=== PATIENT | female | born 1980 | race Caucasian/White ===

== ENCOUNTER → 2017-02-04 13:27 | Emergency (ER) | payer OTHER ==
[~2017-02-04 13:27] MED LIST: NS 0.9% 1000 ML* 1,000 ML IV ONE
[2017-02-04 14:21] LABS: Hematocrit 41 % (35-47); Hemoglobin 13.5 g/dl (12.0-16.0); Mean Corpuscular HGB Conc 33 g/dl (31-36); Mean Corpuscular Hemoglobin 29 pg (27-31); Mean Corpuscular Volume 88 fL (80-97); Mean Platelet Volume 9 um3 (7.4-10.4); Red Blood Count 4.66 10^6/ul (4.0-5.4); Red Cell Distribution Width 13 % (10.5-15); White Blood Count 11.2 10^3/ul (3.5-10.8)
[2017-02-04 14:36] LABS: Albumin 4.6 g/dL (3.2-5.2); BUN/Creatinine Ratio 18.5 (8-20); C Reactive Protein 2.06 mg/L (< 5.00); Calcium 9.3 mg/dL (8.6-10.3); EGFR African American 132.6 (>60); EGFR Non-African American 103.1 (>60); Globulin 2.8 g/dL (2-4); Potassium 3.7 mmol/L (3.5-5.0); Total Bilirubin 0.5 mg/dL (0.2-1.0); Total Protein 7.4 g/dL (6.4-8.9)
--- NOTE | 2017-02-04 15:49 | RAD ---
Indication: Right upper quadrant pain. Real-time sonography of the right upper quadrant was performed. The liver is at the upper limits of normal size measuring 18.0 cm in length. No focal lesions or intrahepatic duct dilatation is noted. The gallbladder demonstrates several echogenic foci with posterior acoustic shadowing. Findings are consistent with cholelithiasis. No pericholecystic fluid or wall thickening is identified. No evidence of sonographic Gongora's sign is noted. Common duct measures 4 mm. Right kidney measures 10.7 x 5.6 x 4.1 cm with no hydronephrosis. The pancreas head, neck and proximal body where visualized is unremarkable. IMPRESSION: CHOLELITHIASIS WITHOUT EVIDENCE OF BILIARY DUCT DILATATION.
--- NOTE | 2017-02-04 18:30 | ED ---
I, Oh,Sojohnny, scribed for Angel Wilson MD on 02/04/17 at 1419 . Abdominal Pain/Female - HPI Summary HPI Summary: This 36 y/o female presents to ED from Urgent Care for acute 03/12 RUQ abd pain since 0400 AM. Pain radiates to back. Pt reports consuming potato, cheese & broccoli, and strawberry shortcake last night. Positive and 1x n/v at 0830 AM. Pt was able to tolerate two slices of toasts afterward. Pain is alleviated by IBP 600 mg taken at 1030 AM. She had 3x BM this morning, and pt states this is more frequent than her baseline. Negative melena or discoloration of urination. Ambulation makes it worse. Position did not change pain. PMHx does not include prior gallbladder dz. FHx is negative for any gallbladder dz, but positive for HTN to father. - History of Current Complaint Chief Complaint: EDAbdPain Stated Complaint: RT ABD PAIN Time Seen by Provider: 02/04/17 13:57 Hx Obtained From: Patient Hx Last Menstrual Period: 08/29/14 Onset/Duration: Sudden Onset, Still Present Pain Intensity: 8 Pain Scale Used: 0-10 Numeric Location: Discrete At: RUQ Radiates: Yes Character: Dull Aggravating Factor(s): Movement - ambulation Alleviating Factor(s): Nothing Associated Signs and Symptoms: Positive: Nausea, Vomiting, Other: - increased frequency of BM. Negative: Fever, Blood in Stool Allergies/Adverse Reactions: Allergies Allergy/AdvReac Type Severity Reaction Status Date / Time Penicillins Allergy Hives Verified 02/04/17 11:30 Seasonal Allergies Allergy Congestion Uncoded 02/04/17 11:30 PMH/Surg Hx/FS Hx/Imm Hx Endocrine/Hematology History: Denies: Hx Diabetes, Hx Thyroid Disease Cardiovascular History: Denies: Hx Hypertension Respiratory History: Denies: Hx Asthma, Hx Chronic Obstructive Pulmonary Disease (COPD) GI History: Denies: Hx Ulcer - Surgical History Surgery Procedure, Year, and Place: Appendectomy, Ear Tubes, Anal Fissure ssurgery Infectious Disease History: No Infectious Disease History: Denies: Hx Clostridium Difficile, Hx Hepatitis, Hx Human Immunodeficiency Virus (HIV), Hx of Known/Suspected MRSA, Hx Shingles, Hx Tuberculosis, Hx Known/ Suspected VRE, Hx Known/Suspected VRSA, History Other Infectious Disease, Traveled Outside the [place] in Last 30 Days - Family History Known Family History: Positive: Hypertension - Social History Alcohol Use: None Substance Use Type: Reports: None Smoking Status (MU): Never Smoked Tobacco Review of Systems Negative: Fever, Skin Diaphoresis Positive: Abdominal Pain - RUQ, Vomiting, Nausea, Other - Increased BM All Other Systems Reviewed And Are Negative: Yes Physical Exam - Summary Physical Exam Summary: The patient is well-nourished in no acute distress and in no acute pain. The skin is warm and dry and skin color reflects adequate perfusion. Nondiaphoretic. HEENT: The head is normocephalic and atraumatic. The pupils are equal and reactive. The conjunctivae are clear and without drainage. Nares are patent and without drainage. Mouth reveals moist mucous membranes and the throat is without erythema and exudate. The external ears are intact. The ear canals are patent and without drainage. The tympanic membranes are intact. Neck is supple with full range of motion and non-tender. There are no carotid bruits. There is no neck vein distension. Respiratory: Chest is non-tender. Lungs are clear to auscultation and breath sounds are symmetrical and equal. Cardiovascular: Hear is regular rate and rhythm. There is no murmur or rub auscultated. There is no peripheral edema. Abdomen: RUQ pain, otherwise, the abdomen is soft and non-tender. There are normal bowel sounds heard in all four quadrants and there is no organomegaly palpated. Negative CVA. Musculoskeletal: There is no back pain noted. Extremities are non-tender with full range of motion. There is good capillary refill. There is no peripheral edema or calf tenderness elicited. Neurological: Patient is alert and oriented to person, place and time. The patient has symmetrical motor strength in all four extremities. Cranial nerves are grossly intact. Deep tendon reflexes are symmetrical and equal in all four extremities. Psychiatric: The patient has an appropriate affect and does not exhibit any anxiety or depression. Triage Information Reviewed: Yes Vital Signs On Initial Exam: Initial Vitals Temp Pulse Resp BP Pulse Ox 98.7 F 95 20 117/63 100 02/04/17 13:44 02/04/17 13:44 02/04/17 13:44 02/04/17 13:44 02/04/17 13:44 Vital Signs Reviewed: Yes Diagnostics - Vital Signs Vital Signs Temp Pulse Resp BP Pulse Ox 02/04/17 13:46 97.7 F 100 16 117/63 100 02/04/17 13:44 98.7 F 95 20 117/63 100 - Laboratory Lab Results: Lab Results 02/04/17 02/04/17 02/04/17 Range/Units 14:10 14:10 14:10 WBC 11.2 H (3.5-10.8) 10^3/ul RBC 4.66 (4.0-5.4) 10^6/ul Hgb 13.5 (12.0-16.0) g/dl Hct 41 (35-47) % MCV 88 (80-97) fL MCH 29 (27-31) pg MCHC 33 (31-36) g/dl RDW 13 (10.5-15) % Plt Count 201 (150-450) 10^3/ul MPV 9 (7.4-10.4) um3 Neut % (Auto) 80.3 (38-83) % Lymph % (Auto) 14.6 L (25-47) % [place] % (Auto) 4.3 (1-9) % Eos % (Auto) 0.3 (0-6) % Baso % (Auto) 0.5 (0-2) % Absolute Neuts (auto) 9.0 H (1.5-7.7) 10^3/ul Absolute Lymphs (auto) 1.6 (1.0-4.8) 10^3/ul Absolute Monos (auto) 0.5 (0-0.8) 10^3/ul Absolute Eos (auto) 0 (0-0.6) 10^3/ul Absolute Basos (auto) 0.1 (0-0.2) 10^3/ul Absolute Nucleated RBC 0 10^3/ul Nucleated RBC % 0 Sodium 136 (133-145) mmol/L Potassium 3.7 (3.5-5.0) mmol/L Chloride 108 (101-111) mmol/L Carbon Dioxide 20 L (22-32) mmol/L Anion Gap 8 (2-11) mmol/L BUN 12 (6-24) mg/dL Creatinine 0.65 (0.51-0.95) mg/dL Est GFR ( Amer) 132.6 (>60) Est GFR (Non-Af Amer) 103.1 (>60) BUN/Creatinine Ratio 18.5 (8-20) Glucose 97 (70-100) mg/dL Lactic Acid 1.3 (0.5-2.0) mmol/L Calcium 9.3 (8.6-10.3) mg/dL Total Bilirubin 0.50 (0.2-1.0) mg/dL AST 12 L (13-39) U/L ALT 11 (7-52) U/L Alkaline Phosphatase 44 (34-104) U/L C-Reactive Protein 2.06 (< 5.00) mg/L Total Protein 7.4 (6.4-8.9) g/dL Albumin 4.6 (3.2-5.2) g/dL Globulin 2.8 (2-4) g/dL Albumin/Globulin Ratio 1.6 (1-3) Amylase 53 (29-103) U/L Lipase 35 (11.0-82.0) U/L Result Diagrams: 02/04/17 14:10 02/04/17 14:10 Lab Statement: Any lab studies that have been ordered have been reviewed, and results considered in the medical decision making process. - Additional Comments Diagnostic Additional Comments: US Gallbladder -- CHOLELITHIASIS WITHOUT EVIDENCE OF BILIARY DUCT DILATATION. Abdominal Pain Fem Course/Dx - Course Course Of Treatment: This 36 y/o female presents to ED from Urgent Care for acute onset of RUQ abd pain since 0400 AM. Pt reports consuming broccoli & cheese, potato, and strawberry shortcake last night. Pt had 1x n/v this morning at 0830 AM but was able to tolerate breakfast with 2 slices of toasts. Positive increased frequency of BM. US GB indicates gallstones. Bloodwork indicates elevated WBC of 11.2. Pt was discharged home with IBP rx and outpatient f/u plan with her PCP. - Diagnoses Differential Diagnosis: Positive: Gall Bladder Disease, Peptic Ulcer Disease, Renal Colic Provider Diagnoses: Cholelithiasis, Abdominal pain Discharge - Discharge Plan Condition: Stable Disposition: HOME Prescriptions: Ibuprofen TAB* [Motrin TAB* 600 MG] 600 mg PO Q6H PRN #30 tab PRN Reason: pain Patient Education Materials: Ibuprofen (By mouth), Low Fat Diet (ED), Abdominal Pain (ED), Gallstones (ED) Referrals: Jennifer Nagy MD [Primary Care Provider] - 2 Days The documentation as recorded by the antonioibJasen martinez Soohyun accurately reflects the service I personally performed and the decisions made by me, Angel Wilson MD.
[2017-02-04 19:44] VITALS: BP 105/59
== END | disposition home or self-care (01) ==
LOC: ED 13:27
DX: K80.20 Calculus of gallbladder without cholecystitis without obstruction (principal); R10.11 Right upper quadrant pain; R11.2 Nausea with vomiting, unspecified
CPT/HCPCS: 36415; 76705; 80053; 82150; 83605; 83690; 85025; 86140; 99282

== ENCOUNTER 2017-04-29 08:44 | Emergency (ER) | payer OTHER ==
[2017-04-29 09:06] VITALS: BP 107/59
--- NOTE | 2017-04-29 09:46 | UC ---
Throat Pain/Nasal Ernie HPI - HPI Summary HPI Summary: ST with referred pain to L ear, fatigue, chills starting yesterday. Denies nasal congestion or cough. 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 - History of Current Complaint Chief Complaint: UCGeneralIllness Stated Complaint: SORE THROAT Time Seen by Provider: 04/29/17 09:17 Hx Obtained From: Patient Hx Last Menstrual Period: 04/03/17 ?: No Onset/Duration: Gradual Onset, Lasting Days Severity: Moderate Cough: None Associated Signs & Symptoms: Positive: Fever - Allergies/Home Medications Allergies/Adverse Reactions: Allergies Allergy/AdvReac Type Severity Reaction Status Date / Time Penicillins Allergy Hives Verified 04/29/17 09:02 Seasonal Allergies Allergy Congestion Uncoded 04/29/17 09:02 Home Medications: Home Medications [id number] [Excedrin Extra Strength 250-250-65 mg] 2 tab PO PRN 04/29/17 [History] PMH/Surg Hx/FS Hx/Imm Hx - Additional Past Medical History Additional PMH: erythema nodosum Other GI/ History: anal fissure - Surgical History Surgical History: Yes Surgery Procedure, Year, and Place: Appendectomy, Ear Tubes, Anal Fissure ssurgery - Family History Known Family History: Positive: Unknown, Hypertension - Social History Lives: With Family Alcohol Use: None Substance Use Type: None Smoking Status (MU): Never Smoked Tobacco Review of Systems Constitutional: Chills, Fatigue Skin: Negative Eyes: Negative ENT: Sore Throat Respiratory: Negative Cardiovascular: Negative Gastrointestinal: Negative Genitourinary: Negative Motor: Negative Neurovascular: Negative Musculoskeletal: Negative Neurological: Negative Psychological: Negative All Other Systems Reviewed And Are Negative: Yes Physical Exam Triage Information Reviewed: Yes Appearance: Well-Appearing, Pain Distress - mild, with swallowing Vital Signs: Initial Vital Signs Temp 99.2 F 04/29/17 09:03 Pulse 92 04/29/17 09:03 Resp 16 04/29/17 09:03 BP 107/59 04/29/17 09:03 Pulse Ox 100 04/29/17 09:03 Vital Signs Reviewed: Yes Eye Exam: Normal, Other - PERRL Eyes: Positive: Conjunctiva Clear ENT: Positive: Pharyngeal erythema, TMs normal, Tonsillar swelling, Tonsillar exudate. Negative: Nasal congestion, Nasal drainage Dental Exam: Normal Neck: Positive: Enlarged Nodes @ - tonsillar Respiratory Exam: Normal Respiratory: Positive: Chest non-tender, Lungs clear, Normal breath sounds, No respiratory distress, No accessory muscle use Cardiovascular Exam: Normal Cardiovascular: Positive: RRR, No Murmur Musculoskeletal Exam: Normal Neurological Exam: Normal Neurological: Positive: Alert Psychological Exam: Normal Skin Exam: Normal Throat Pain/Nasal Course/Dx - Course Course Of Treatment: Pt does not wish to go back to Dr. Nagy because she was unwilling to treat pt for erythema nodosum last time she got strep. I will refer to physician referral center for a new provider. - Differential Dx/Diagnosis Provider Diagnoses: strep throat Discharge - Discharge Plan Condition: Stable Disposition: HOME Prescriptions: Cephalexin CAP* [Keflex 500 CAP*] 500 mg PO BID #20 cap Patient Education Materials: Strep Throat (ED) Referrals: [facility]ERR[facility] [Outside] Additional Instructions: Call or return if you do not have clear improvement within the next 4-5 days. Tell Radha Arevalo at the physician referral center that I would like you to be seen within 2 weeks.
== END 2017-04-29 09:50 | disposition home or self-care (01) ==
LOC: UCEAST 08:44
DX: J02.0 Streptococcal pharyngitis (principal); Z88.0 Allergy status to penicillin
CPT/HCPCS: 87651; 99212; G0463